=== PATIENT | male | born 1960 | race Caucasian/White ===

== ENCOUNTER 2019-11-29 20:29 | Emergency (ER) | payer BC ==
[~2019-11-29] VITALS: Ht 177.8 cm; Wt 97.5 kg
[2019-11-29] MEDS ORDERED: FLUORESCEIN SODIUM 1 MG OPHTHALMIC STRIP OP ONE (20:30)
[2019-11-29] MEDS ORDERED: TETRACAINE (PONTOCAINE) TOPICAL 30 ML SOLUTION TP ONE (20:30)
[2019-11-29] MEDS ORDERED: BALANCED SALT IRRIG SOLN 15 ML IO ONE (20:30)
[2019-11-29 20:35] VITALS: BP_SYST 143
--- NOTE | 2019-11-29 22:08 | NUR ---
Patient to ER bed 8 to gown for evaluation. Side rails up. Report given to DENISE HUGHES.
--- NOTE | 2019-11-29 22:15 | NUR ---
Patient complains of left eye pain s/p getting wet cement in eye while using a pressure hose. Pt states he was at work and was using the pressure hose and the hose hit the wet cement and splattered into his eye. Pt is able to open eye a little but states he feels as if there is something in it. Noted erythema to sclera. Pain is 8/10. No other injuries/complaints per patient or noted.
--- NOTE | 2019-11-29 22:19 | NUR ---
Instructed patient to rinse left eye out at rinse station for about 5-10 minutes, per Dr. Woods. Pt is tolerating well.
--- NOTE | 2019-11-29 22:29 | NUR ---
Patient returned to bed in comfortabe position. Eye kit at bedside.
--- NOTE | 2019-11-29 22:42 | NUR ---
ER Dr. Verdugo at bedside examining patient.
[2019-11-29 22:55] VITALS: BP_SYST 136
--- NOTE | 2019-11-29 22:55 | NUR ---
Patient given written and verbal discharge instructions and verbalizes understanding. ER MD discussed with patient the results and treatment provided. Patient in stable condition. ID arm band removed. Rx of Erythromycin ophthalmic ointment, motrin, and norco given. Patient educated on pain management and to follow up with PMD. Pain Scale 0. Opportunity for questions provided and answered. Medication side effect fact sheet provided.
== END 2019-11-29 22:55 | disposition home or self-care (01) ==
LOC: SED 20:29
DX: S05.02XA Injury of conjunctiva and corneal abrasion without foreign body, left eye, initial encounter (principal); I10 Essential (primary) hypertension; Z85.46 Personal history of malignant neoplasm of prostate; X58.XXXA Exposure to other specified factors, initial encounter; Y93.89 Activity, other specified; Y92.89 Other specified places as the place of occurrence of the external cause; Y99.8 Other external cause status
CPT/HCPCS: 99283